=== PATIENT | female | born 1995 | race Caucasian/White ===

== ENCOUNTER 2024-07-31 06:23 | Inpatient (IN) ==
[2024-07-31] MEDS: PRECEDEX INJ VIAL ONE (06:42)
[2024-07-31] MEDS: REGLAN INJ 10 MG VIAL ONE (06:43)
[2024-07-31] MEDS: ZOFRAN INJ 4 MG VIAL ONE (06:43)
[2024-07-31] MEDS: PEPCID 20 MG VIAL ONE (06:43)
[2024-07-31] MEDS: XYLOCAINE 2 % (PLAIN) ONE (06:43)
[2024-07-31] MEDS: MARCAINE SPINAL ONE (06:43)
[2024-07-31] MEDS: EPHEDRINE SULFATE INJ ONE (06:47)
[2024-07-31] MEDS: LR 1,000 ML IV 1,000 ML IV ONE (06:47)
[2024-07-31] MEDS: BICITRA 30 ML PO ONE (06:47)
[2024-07-31] MEDS: LR 1,000 ML IV 1,000 ML IV SCH (06:50)
[2024-07-31] MEDS: REGLAN INJ 10 MG VIAL IVP PRN (07:00)
[2024-07-31] MEDS: LR 1,000 ML IV 2,000 ML IV PRN (07:00)
[2024-07-31] MEDS: PEPCID 20 MG VIAL IVP PRN (07:00)
[2024-07-31] MEDS: ZOFRAN INJ 4 MG VIAL IVP PRN (07:00)
[2024-07-31] MEDS ORDERED: DANTRIUM PRN (07:05)
[2024-07-31] MEDS: NOZIN NASAL SANITIZER TP ONE (07:11)
[2024-07-31] MEDS ORDERED: BENADRYL INJ 50 MG VIAL IVP PRN ×2 (07:13→09:18)
[2024-07-31] MEDS ORDERED: REGLAN INJ 10 MG VIAL IVP PRN ×2 (07:13→09:18)
[2024-07-31] MEDS ORDERED: ZOFRAN INJ 4 MG VIAL IVP PRN ×2 (07:13→09:18)
[2024-07-31] MEDS ORDERED: DILAUDID INJ IVP PRN (07:13)
[2024-07-31] MEDS: ANCEF VIAL 1 GRAM IV PRN (07:15)
[2024-07-31] MEDS: NS 100 ML IV 100 ML ONE (07:18)
[2024-07-31] MEDS: ANCEF VIAL 1 GRAM IVP ONE (07:18)
[2024-07-31 07:37] LABS: INR 1.06 (0.8-1.3)
[2024-07-31 07:41] LABS: URIC ACID 4.9 mg/dL (2.6-6.0)
[2024-07-31] MEDS: PITOCIN ONE (07:59)
[2024-07-31] MEDS: DIPRIVAN VIAL 20 ML ONE (08:12)
[2024-07-31] MEDS: DIPRIVAN VIAL 120 ML IVP PRN (08:15)
[2024-07-31] MEDS: XYLOCAINE 2 % (PLAIN) INJ PRN (08:15)
[2024-07-31] MEDS: BENADRYL INJ 50 MG VIAL ONE (08:25)
[2024-07-31] MEDS: BENADRYL INJ 50 MG VIAL IVP PRN (08:26)
[2024-07-31] MEDS: EPHEDRINE SULFATE INJ IVP PRN (08:26)
[2024-07-31] MEDS: PITOCIN IVP PRN (08:48)
[2024-07-31] MEDS ORDERED: ADACEL or BOOSTRIX TDaP VACCINE IM ONE (09:18)
[2024-07-31] MEDS: PERCOCET TAB 5/325 MG PO PRN ×2 (11:17→15:34)
[2024-07-31] MEDS: TORADOL 30 MG VIAL IVP PRN (11:18)
[2024-07-31] MEDS: OXYTOCIN 20 UNIT/1,000 ML-NS 20 UNIT/1,000 ML PLAST..BAG IV SCH (12:05)
[2024-07-31] MEDS: PRENATAL PLUS PO SCH (12:32)
[2024-07-31] MEDS: ZyrTEC TAB 10 MG PO SCH (12:33)
[2024-07-31] MEDS: NORMODYNE TAB 100 MG PO SCH (12:37)
[2024-07-31] MEDS: PROTONIX TAB 40 MG PO SCH (12:37)
[2024-07-31] MEDS: FERROUS GLUCONATE PO SCH (17:21)
[2024-08-01 05:10] LABS: HEMATOCRIT 26.7 % (36.0-47.0)
[2024-08-01 05:42] LABS: HEMOGLOBIN 9.5 g/dL (12.0-16.0)
[2024-08-01] MEDS: MOTRIN TAB 800 MG PO PRN (09:26)
[2024-08-01] MEDS: MYLICON TAB 80 MG CHEW PO PRN (09:27)
[2024-08-01] MEDS: COLACE CAP 100 MG PO SCH (09:28)
[2024-08-01] MEDS: BACTROBAN TOPICAL OINT TOP SCH (13:41)
[2024-08-01 15:39] VITALS: RESP 20
[2024-08-01 16:39] VITALS: BP 110/56; PULSE 109; TEMP 97.7; O2SAT 98
== END 2024-08-01 17:55 | disposition home or self-care (01) | DRG 787 ==
LOC: LD 06:23 → MED/SURG 09:19
PROVIDERS: ADMIT Specialist; ATTEND Specialist
DX: Z3A.38 38 weeks gestation of pregnancy; K21.9 Gastro-esophageal reflux disease without esophagitis; Z37.0 Single live birth; O10.913 Unspecified pre-existing hypertension complicating pregnancy, third trimester; N85.8 Other specified noninflammatory disorders of uterus; O34.211 Maternal care for low transverse scar from previous cesarean delivery; O99.613 Diseases of the digestive system complicating pregnancy, third trimester